=== PATIENT | female | born 1940 | race Caucasian/White ===

== ENCOUNTER 2021-09-11 14:07 | Emergency (ER) | payer OTHER ==
[~2021-09-11] VITALS: Ht 160 cm; Wt 81.6 kg
[2021-09-11] MEDS ORDERED: LIPITOR20 MG PO (14:38)
[2021-09-11] MEDS ORDERED: GLIMEPIRIDE1 MG (14:38)
[2021-09-11] MEDS ORDERED: PLAVIX75 MG PO (14:38)
[2021-09-11] MEDS ORDERED: ZETIA10 MG PO (14:38)
[2021-09-11] MEDS ORDERED: SINGULAIR 10MG10 MG PO (14:39)
[2021-09-11] MEDS ORDERED: ALLERGY RELIE15.8 ML NS (14:39)
[2021-09-11] MEDS ORDERED: ALDACTONE25 MG PO (14:39)
[2021-09-11] MEDS ORDERED: PAXIL20 MG PO (14:39)
[2021-09-11] MEDS ORDERED: ZYRTEC10 M3 PO (14:40)
[2021-09-11] MEDS ORDERED: SYNTHROID50 MCG PO (14:40)
[2021-09-11] MEDS ORDERED: TOPROL XL25 M1 PO (14:40)
== END 2021-09-11 18:31 | disposition home or self-care (01) ==
LOC: ER 14:07
DX: F03.90 Unspecified dementia, unspecified severity, without behavioral disturbance, psychotic disturbance, mood disturbance, and anxiety (principal); R41.3 Other amnesia; I10 Essential (primary) hypertension; Z88.2 Allergy status to sulfonamides; Z88.8 Allergy status to other drugs, medicaments and biological substances